=== PATIENT | female | born 1965 | race African-American/Black ===

== ENCOUNTER 2017-06-24 09:33 | Outpatient (CLI) | payer OTHER ==
--- NOTE | 2017-06-24 10:23 | Mammography Report ---
BONE DENSITY STUDY: DEFINITIONS: BMD = Bone Mineral Density T-score = BMD related to mean peak bone mass of young adult (mean expressed in Standard Deviation) Z-score = Age matched BMD expressed in SD World Health Organization (WHO) Diagnostic Criteria Normal T-score > -1 SD Osteopenia T-score between -1 and -2.4 SD Osteoporosis T-score -2.5 SD or below FINDINGS: The weighted average BMD of lumbar spine L1-L4 is 0.764 with a T-score of -2.6. The weighted average BMD of the left hip is 0.766 with a T-score of -1.4. The BMD of the femoral neck is 0.612 with a T. value score of -2.1. IMPRESSION: The patient's average T-score is diagnostic for osteoporosis and high relative risk for fracture. NOTE: BMD is not the only risk factor for fracture; also consider factors such as the patient's age, risk of falling, previous osteoporotic fracture, family history of osteoporotic fractures, current smoker, and low body weight. De La O's triangle is a region of interest in femur, predominantly of trabecular bone. It is not a true anatomic site, and [facility] does not recommend its use clinically.
== END 2017-06-24 09:34 | disposition home or self-care (01) ==
LOC: MAMMO 09:33
PROVIDERS: ATTEND Internal Medicine
DX: M81.0 Age-related osteoporosis without current pathological fracture (principal); M54.9 Dorsalgia, unspecified; M25.569 Pain in unspecified knee
CPT/HCPCS: 77080